=== PATIENT | female | born 1960 | race Caucasian/White ===

== ENCOUNTER → 2020-03-29 08:20 | Outpatient (CLI) | payer BC ==
[2019-12-19 10:49] VITALS: BMI 32.5
[~2020-03-29 08:20] MED LIST: ESTRACE1 MG PO; FLUTICASONE PRO16 GM NASAL; IPRAT-ALBUT 0.5-3 ML UPD; LOSARTAN-HCTZ1 EAC1 PO; MIRAPEX0.25 MG PO; OMEPRAZOLE20 M1 PO; PROZAC20 MG PO
[2020-03-29 08:54] LABS: ALBUMIN 3.5 g/dL (3.4-5.0); BILIRUBIN - DIRECT 0.11 mg/dL (0.00-0.30); BILIRUBIN - INDIRECT 0.46 mg/dL (0.00-1.00); BILIRUBIN - TOTAL 0.57 mg/dL (0.2-1.3); PROTEIN - SERUM 7.6 g/dL (6.4-8.2)
== END | disposition home or self-care (01) ==
LOC: D.MRI 08:20
PROVIDERS: ATTEND Internal Medicine Gastroenterology
DX: K85.10 Biliary acute pancreatitis without necrosis or infection (principal)